=== PATIENT | male | born 2000 | race Caucasian/White ===

== ENCOUNTER 2022-11-18 19:20 | Inpatient (IN) ==
[2022-11-18 19:40] VITALS: BMI 27.8
--- NOTE | 2022-11-18 19:43 | DR.GENAD ---
HPI Time Seen Time Seen by Provider: 11/18/22 19:42 PCP Primary Care Physician: Nurys Morales Complaint/Symptoms Chief Complaint:: patient ambulatory in the ER with complaints of flu like symptoms since 11/07. pt was tested for flu and covid at doctors office with negative results. Pt was given a Zpack with no relief of symptoms. pt went to Nurys Bolivar NP for blood work today with an elevated liver enzymes and was told to come to the ER. Lab values AST 562, ALT 1189, AlK PHOS 410. Self Treatment fo Chief Complaint: Tylenol, Z pack COVID-19 Has patient experienced Coronavirus symptoms: Yes Coronavirus symptoms experienced: Fever Source History Provided: Patient Mode of Arrival Mode of Arrival: Ambulatory Timing Onset of Chief Complaint: 11/07/22 PMH PMH Past Medical History: No Past Surgical History: Yes Past Surgical History Comment: Mouth Surgery Family History History of Family Medical Conditions: No Family Medical History: Hypertension Social History Type of Tobacco Use: None Alcohol Use: None Do you use any recreational Drugs:: No Lives With: Spouse Lives Where: Home Travel Risk Has patient experienced Coronavirus symptoms: Yes Coronavirus symptoms experienced: Fever Infectious screening Have you traveled outside the country in the last 6 months?: No Isolation: Standard PE Vital Signs Vitals: Temperature 97.3 F Pulse Rate 97 Respiratory Rate 19 Blood Pressure 136/73 O2 Sat by Pulse Oximetry 99 ROR Labs Reviewed Result Diagrams: 11/22/22 06:14 11/22/22 06:14 Laboratory: WBC 24.5 X10^3/uL (3.6-10.0) H 11/18/22 20:03 RBC 4.28 X10^6/uL (4.7-6.0) L 11/18/22 20:03 Hgb 13.4 g/dL (13.5-18.0) L 11/18/22 20:03 Hct 40.1 % (42.0-54.0) L 11/18/22 20:03 MCV 93.8 fL (80.0-100.0) 11/18/22 20:03 MCH 31.3 pg (27.0-34.0) 11/18/22 20:03 MCHC 33.4 g/dL (33.0-35.0) 11/18/22 20:03 RDW 13.6 % (11.6-16.5) 11/18/22 20:03 Plt Count 265 X10^3/uL (150.0-450.0) 11/18/22 20:03 Plt Count Comment Cancelled 11/18/22 20:03 MPV 7.7 fL (7.4-11.0) 11/18/22 20:03 Neut % (Auto) 17.0 % (42.0-75.0) L 11/18/22 20:03 Lymph % (Auto) 70.5 % (21.0-51.0) H 11/18/22 20:03 Webb % (Auto) 10.4 % (0.0-13.0) 11/18/22 20:03 Eos % (Auto) 2.1 % (0.9-2.9) 11/18/22 20:03 Baso % (Auto) 0 % (0.2-1.0) L 11/18/22 20:03 Neut # (Auto) 4.2 x10^3/uL (2.2-4.8) 11/18/22 20:03 Lymph # (Auto) 17.3 X10^3/uL (1.3-2.9) H 11/18/22 20:03 Webb # (Auto) 2.5 x10^3/uL (0.3-0.8) H 11/18/22 20:03 Eos # (Auto) 0.5 x10^3/uL (0.0-0.2) H 11/18/22 20:03 Baso # (Auto) 0.0 X10^3/uL (0.0-0.1) 11/18/22 20:03 Absolute Nucleated RBC 0.2 /100WBC 11/18/22 20:03 Total Counted Cancelled 11/18/22 20:03 Neutrophils % (Manual) Cancelled 11/18/22 20:03 Band Neutrophils % Cancelled 11/18/22 20:03 Lymphocytes % (Manual) Cancelled 11/18/22 20:03 Monocytes % (Manual) Cancelled 11/18/22 20:03 Eosinophils % (Manual) Cancelled 11/18/22 20:03 Basophils % (Manual) Cancelled 11/18/22 20:03 Metamyelocytes % Cancelled 11/18/22 20:03 Myelocytes % Cancelled 11/18/22 20:03 Promyelocytes % Cancelled 11/18/22 20:03 Nucleated RBCs Cancelled 11/18/22 20:03 Atypical Lymphocytes Cancelled 11/18/22 20:03 Blast Cells Cancelled 11/18/22 20:03 Smudge Cells Cancelled 11/18/22 20:03 Toxic Granulation Cancelled 11/18/22 20:03 Dohle Bodies Cancelled 11/18/22 20:03 Danae Rods Cancelled 11/18/22 20:03 Plt Clumps, EDTA Cancelled 11/18/22 20:03 Giant Platelets Cancelled 11/18/22 20:03 Plt Morphology Comment Cancelled 11/18/22 20:03 RBC Morphology Cancelled 11/18/22 20:03 Dimorphic RBCs Cancelled 11/18/22 20:03 Polychromasia Cancelled 11/18/22 20:03 Hypochromasia Cancelled 11/18/22 20:03 Poikilocytosis Cancelled 11/18/22 20:03 Basophilic Stippling Cancelled 11/18/22 20:03 Anisocytosis Cancelled 11/18/22 20:03 Microcytosis Cancelled 11/18/22 20:03 Macrocytosis Cancelled 11/18/22 20:03 Spherocytes Cancelled 11/18/22 20:03 Pappenheimer Bodies Cancelled 11/18/22 20:03 Sickle Cells Cancelled 11/18/22 20:03 Target Cells Cancelled 11/18/22 20:03 Tear Drop Cells Cancelled 11/18/22 20:03 Ovalocytes Cancelled 11/18/22 20:03 Stomatocytes Cancelled 11/18/22 20:03 Helmet Cells Cancelled 11/18/22 20:03 Peguero-Leona Bodies Cancelled 11/18/22 20:03 [place] Rings Cancelled 11/18/22 20:03 [place] Cells Cancelled 11/18/22 20:03 Crenated Cell Cancelled 11/18/22 20:03 Acanthocytes (Spur) Cancelled 11/18/22 20:03 Rouleaux Cancelled 11/18/22 20:03 Schistocytes Cancelled 11/18/22 20:03 Smear Path Review See note 11/18/22 20:03 PT 13.8 SECONDS (11.8-14.3) 11/18/22 22:00 INR Target Range - 11/18/22 22:00 INR 1.09 (0.8-1.3) 11/18/22 22:00 APTT 30.6 SECONDS (22.9-36.5) 11/18/22 22:00 PTT Comment - 11/18/22 22:00 Sodium 137 mmol/L (136-145) 11/18/22 20:03 Corrected Sodium TNP 11/18/22 20:03 Potassium 4.3 mmol/L (3.5-5.1) 11/18/22 20:03 Chloride 101 mmol/L (98-107) 11/18/22 20:03 Carbon Dioxide 30.2 mmol/L (21-32) 11/18/22 20:03 BUN 10 mg/dL (7-18) 11/18/22 20:03 Creatinine 0.76 mg/dL (0.70-1.30) 11/18/22 20:03 Est GFR (MDRD) Af Amer > 60 (>60) 11/18/22 20:03 Est GFR (MDRD) Non-Af > 60 (>60) 11/18/22 20:03 Glucose 84 mg/dL (65-99) 11/18/22 20:03 Calcium 8.6 mg/dL (8.5-10.1) 11/18/22 20:03 Corrected Calcium TNP 11/18/22 20:03 Total Bilirubin 1.50 mg/dL (0.2-1.0) H 11/18/22 20:03 AST 516 Units/L (15-37) H 11/18/22 20:03 ALT 1325 Units/L (12-78) H 11/18/22 20:03 Alkaline Phosphatase 381 Units/L (46-116) H 11/18/22 20:03 Total Protein 7.7 g/dL (6.4-8.2) 11/18/22 20:03 Albumin 3.8 g/dL (3.4-5.0) 11/18/22 20:03 Globulin 3.9 g/dL (2.5-4.5) 11/18/22 20:03 Albumin/Globulin Ratio 1.0 Ratio (1.1-2.1) L 11/18/22 20:03 Amylase 72 Units/L (25-115) 11/18/22 20:03 Lipase 99 Units/L (73-393) 11/18/22 20:03 Specimen Type Clean catch urine 11/18/22 21:07 Urine Color Yellow (YELLOW) 11/18/22 21:07 Urine Appearance Clear (CLEAR) 11/18/22 21:07 Urine pH 6.5 (5.0 - 8.0) 11/18/22 21:07 Ur Specific [place] 1.005 (1.000-1.030) 11/18/22 21:07 Urine Protein 2+ (NEGATIVE) 11/18/22 21:07 Urine Glucose (UA) Negative (NEGATIVE) 11/18/22 21:07 Urine Ketones Negative (NEGATIVE) 11/18/22 21:07 Urine Blood 1+ (NEGATIVE) 11/18/22 21:07 Urine Nitrite Negative (NEGATIVE) 11/18/22 21:07 Urine Bilirubin Negative (NEGATIVE) 11/18/22 21:07 Urine Urobilinogen Normal (NORMAL) 11/18/22 21:07 Ur Leukocyte Esterase Negative (NEGATIVE) 11/18/22 21:07 Urine RBC None seen /HPF (0-3) 11/18/22 21:07 Urine WBC 0-2 /HPF (0-5) 11/18/22 21:07 Ur Squamous Epith Cells Rare /HPF (NEGATIVE) 11/18/22 21:07 Urine Bacteria Negative /HPF (NEGATIVE) 11/18/22 21:07 Ur Culture Indicated? No/not indicated 11/18/22 21:07 Acetaminophen 0.0 ug/mL (10-30) L 11/18/22 20:03 SARS-CoV-2 (PCR) Negative (NEGATIVE) 11/18/22 21:54 Hepatitis A IgM Ab Negative (Negative) 11/18/22 22:00 Hep Bs Antigen Negative (Negative) 11/18/22 22:00 Hep B Core IgM Ab Positive (Negative) H 11/18/22 22:00 Hepatitis C Ab Index 0.05 IV 11/18/22 22:00 Hep C RIBA Interpret Negative (Negative) 11/18/22 22:00 Hepatitis Interpret See note 11/18/22 22:00 Monoscreen Positive (NEGATIVE) A 11/18/22 22:00 Influenza Type A (PCR) Negative (NEGATIVE) 11/18/22 21:54 Influenza Type B (PCR) Negative (NEGATIVE) 11/18/22 21:54 RSV (PCR) Negative (NEGATIVE) 11/18/22 21:54 Opioid Opioid Risk Tool Age (Chung box if 16-45): Yes Total: 1 Total Score Risk Category: Low Risk Copyright: Orville COLBERT predicting aberrant behaviors Discharge Plan Discharge Plan Patient Disposition: HOME, SELF-CARE Condition: Stable Discharge Comment: Admited to ICU RM#2
[2022-11-18 20:15] LABS: BASOPHILS % (AUTO) 0 % (0.2-1.0); EOSINOPHILS # (AUTO) 0.5 x10^3/uL (0.0-0.2); EOSINOPHILS % (AUTO) 2.1 % (0.9-2.9); HEMATOCRIT 40.1 % (42.0-54.0); HEMOGLOBIN 13.4 g/dL (13.5-18.0); LYMPHOCYTES # (AUTO) 17.3 X10^3/uL (1.3-2.9); LYMPHOCYTES % (AUTO) 70.5 % (21.0-51.0); MEAN CORPUSCULAR HEMOGLOBIN 31.3 pg (27.0-34.0); MEAN CORPUSCULAR HGB CONC 33.4 g/dL (33.0-35.0); MEAN CORPUSCULAR VOLUME 93.8 fL (80.0-100.0); MEAN PLATELET VOLUME 7.7 fL (7.4-11.0); MONOCYTES # (AUTO) 2.5 x10^3/uL (0.3-0.8); MONOCYTES % (AUTO) 10.4 % (0.0-13.0); NEUTROPHILS # (AUTO) 4.2 x10^3/uL (2.2-4.8); RED BLOOD COUNT 4.28 X10^6/uL (4.7-6.0); RED CELL DISTRIBUTION WIDTH 13.6 % (11.6-16.5); WHITE BLOOD COUNT 24.5 X10^3/uL (3.6-10.0)
[2022-11-18 20:32] LABS: ALBUMIN 3.8 g/dL (3.4-5.0); ALKALINE PHOSPHATASE 381 Units/L (46-116); AMYLASE 72 Units/L (25-115); ASPARTATE AMINO TRANSFERASE 516 Units/L (15-37); BLOOD UREA NITROGEN 10 mg/dL (7-18); CALCIUM 8.6 mg/dL (8.5-10.1); CARBON DIOXIDE 30.2 mmol/L (21-32); CHLORIDE 101 mmol/L (98-107); CREATININE 0.76 mg/dL (0.70-1.30); LIPASE 99 Units/L (73-393); SODIUM 137 mmol/L (136-145); TOTAL PROTEIN 7.7 g/dL (6.4-8.2); eGFR NON BLACK RACES > 60 (>60)
--- NOTE | 2022-11-18 20:34 | CT ---
ABDOMEN/PELVIS WITH CONHISTORY: Flu-like symptomsComparison:NoneTechnique:Multiple axial images of the abdomen and pelvis were obtained from the lung bases to the pubic symphysis following the administration of IV contrast as well as oral contrast . Dose reduction techniques including Automated Exposure Control (AEC) and adjustment of mA and kV were utlized.Findings:The heart is normal in size. There is no pericardial effusion. Lung bases are clear without focal consolidation, pleural effusion or pneumothorax.Liver is within normal limits. Spleen measures 15 cm. No focal lesions. The portal vein is patent. No ductal dilitation. Gallbladder is present. No calcified gallstones or gallbladder wall thickening. The pancreas is unremarkable. Adrenal glands are normal. Kidneys enhance symmetrically without hydronephrosis or nephrolithiasis.No bowel obstruction or inflammation. Normal appendix. No abnormal appearing mesenteric or retroperitoneal lymph nodes. . No free fluid or fluid collections.The bladder is normal in appearance. Prostate unremarkable. No free fluid or abnormal pelvic lymph nodes.No aggressive osseous lesions.IMPRESSION:1.Mild splenomegaly. Otherwise grossly unremarkable.Electronically signed by: TANISHA FAJARDO (Nov 18, 2022 20:33:05)
[2022-11-18 21:06] LABS: ALANINE AMINOTRANSFERASE 1325 Units/L (12-78)
[2022-11-18 21:17] LABS: BILIRUBIN,URINE NEGATIVE (NEGATIVE); BLOOD/HEMOGLOBIN,URINE 1+ (NEGATIVE); GLUCOSE, URINE NEGATIVE (NEGATIVE); KETONES,URINE NEGATIVE (NEGATIVE); LEUKOCYTE ESTERASE ,URINE NEGATIVE (NEGATIVE); NITRITES,URINE NEGATIVE (NEGATIVE); PH,URINE 6.5 (5.0 - 8.0); PROTEIN,URINE 2+ (NEGATIVE); UROBILINOGEN,URINE NORMAL (NORMAL)
[2022-11-18 21:32] LABS: APPEARANCE,URINE CLEAR (CLEAR); BACTERIA,URINE NEGATIVE /HPF (NEGATIVE); COLOR,URINE YELLOW (YELLOW); RBC,URINE NONE SEEN /HPF (0-3); SQUAMOUS EPITHELIAL CELL,UR RARE /HPF (NEGATIVE)
[2022-11-18] MEDS: NS 100 ML IV 100 ML ONE ×2 (21:47→21:49)
[2022-11-18 22:18] LABS: INR 1.09 (0.8-1.3)
[2022-11-18] MEDS ORDERED: ZOFRAN INJ 4 MG VIAL IVP PRN (23:40)
[2022-11-18] MEDS ORDERED: TYLENOL 325 MG TAB PO PRN (23:52)
[2022-11-19] MEDS: NS 1,000 ML IV 1,000 ML IV SCH ×3 (00:47→21:44)
[2022-11-19 05:26] LABS: BASOPHILS # (AUTO) 0.1 X10^3/uL (0.0-0.1); BASOPHILS % (AUTO) 0.5 % (0.2-1.0); EOSINOPHILS % (AUTO) 0.2 % (0.9-2.9); HEMATOCRIT 37.4 % (42.0-54.0); HEMOGLOBIN 12.6 g/dL (13.5-18.0); LYMPHOCYTES # (AUTO) 20.6 X10^3/uL (1.3-2.9); LYMPHOCYTES % (AUTO) 92.5 % (21.0-51.0); MEAN CORPUSCULAR HEMOGLOBIN 31.3 pg (27.0-34.0); MEAN CORPUSCULAR HGB CONC 33.7 g/dL (33.0-35.0); MEAN CORPUSCULAR VOLUME 92.8 fL (80.0-100.0); MEAN PLATELET VOLUME 8.4 fL (7.4-11.0); MONOCYTES # (AUTO) 0.2 x10^3/uL (0.3-0.8); MONOCYTES % (AUTO) 0.8 % (0.0-13.0); NEUTROPHILS # (AUTO) 1.3 x10^3/uL (2.2-4.8); RED BLOOD COUNT 4.03 X10^6/uL (4.7-6.0); RED CELL DISTRIBUTION WIDTH 13.5 % (11.6-16.5); WHITE BLOOD COUNT 22.3 X10^3/uL (3.6-10.0)
[2022-11-19 05:49] LABS: ALBUMIN 3.3 g/dL (3.4-5.0); ALKALINE PHOSPHATASE 353 Units/L (46-116); AMYLASE 65 Units/L (25-115); ASPARTATE AMINO TRANSFERASE 431 Units/L (15-37); BLOOD UREA NITROGEN 6 mg/dL (7-18); CARBON DIOXIDE 28.8 mmol/L (21-32); CHLORIDE 104 mmol/L (98-107); COR CA(FOR HYPOALB) 8.6 mg/dL (8.5-10.1); CREATININE 0.73 mg/dL (0.70-1.30); LIPASE 107 Units/L (73-393); SODIUM 140 mmol/L (136-145); TOTAL PROTEIN 6.8 g/dL (6.4-8.2); eGFR NON BLACK RACES > 60 (>60)
[2022-11-19 05:50] LABS: ALANINE AMINOTRANSFERASE 1179 Units/L (12-78)
[2022-11-19] MEDS ORDERED: POTASSIUM CHL 60 MEQ/NS 0.45% 500 ML IV PRN (06:43)
[2022-11-19] MEDS ORDERED: K-RIDER 10 MEQ/NS 100 ML 10 MEQ/100 ML BAG IV PRN (06:43)
[2022-11-19] MEDS ORDERED: MICRO K EXTEN CAP 10 MEQ PO PRN (06:43)
[2022-11-19] MEDS ORDERED: KLOR-CON PO PRN (06:43)
[2022-11-19] MEDS ORDERED: POTASSIUM CHL 40 MEQ/NS 0.45% 500 ML IV PRN (06:43)
[2022-11-19] MEDS ORDERED: POTASSIUM CHLORIDE LIQ 20 MEQ UDC PO PRN (06:43)
[2022-11-19] MEDS ORDERED: K-DUR TAB 20 MEQ PO PRN (06:43)
[2022-11-19] MEDS: MAGNESIUM SULFATE 1 GRAM/100 mL PREMIX 1 G/100 ML BAG IV PRN ×2 (11:11→13:01)
--- NOTE | 2022-11-19 11:14 | CT ---
HISTORYintractable haSTUDYCT brain without IV contrastCOMPARISONNoneTECHNIQUEMultiple axial images of the brain were obtained without IV contrast. Dose reduction techniques including Automated Exposure Control (AEC) and adjustment of mA and kV were utilized.FINDINGSSmall retention cyst is seen in the right maxillary sinus. No air-fluid levels are seen in the paranasal sinuses or mastoid air cells. No calvarial fracture is seen.No acute intracranial hemorrhage or mass effect is seen. The cerebral ventricles are normal in size. No evidence of acute CVA.IMPRESSIONNo intra abnormalities are seen.Small retention cyst is seen in the right maxillary sinus.Electronically signed by: Girish Mullen (Nov 19, 2022 10:35:27)
--- NOTE | 2022-11-19 17:52 | DR.H&P ---
H&P - History & Physical for Day of: H&P Date: 11/18/22 - Chief Complaint Chief Complaint: "flu like symptoms" abnormal blood work and was instructed to report to ER - History of Present Illness History of Present Illness: Patient ambulatory in the ER with complaints of flu like symptoms since 11/07. pt was tested for flu and covid at doctors office with negative results. Pt was given a Zpack with no relief of symptoms. pt went to Nurys Bolivar NP for blood work today with an elevated liver enzymes and was told to come to the ER. Lab values AST 562, ALT 1189, AlK PHOS 410. Self Treatment fo Chief Complaint: Tylenol, Z pack - Past Medical History Past Medical History: Anxiety, Arthritis - Past Surgical History Surgical History: No History - Family History Family Medical History: Hypertension - Social History Does patient currently use any type of tobacco product: No Have you used tobacco products in the last 12 months: No Type of Tobacco Use: None Does any household member use tobacco: No Alcohol Use: None Drug Use: None Risks, benefits, and alternatives of opioids discussed: No - Medications Home Medications: No Known Allergies Allergy (Verified 11/18/22 21:19) CONTINUE taking the following medications NK 11/19/22 [History] - Review of Systems Constitutional: Malaise Eyes: No Symptoms Reported ENT: No Symptoms Reported Respiratory: Cough, Pleuritic Pain Cardiovascular: No Symptoms Reported Gastrointestinal: Nausea Musculoskeletal: Neck Pain Skin: No Symptoms Reported Neurological: Other (headache) - Physical Exam Vital Signs: Temperature 98.8 F Pulse Rate [Apical] 93 Pulse Rate [Brachial] 73 Pulse Rate 97 Respiratory Rate 25 Blood Pressure [Right Arm] 135/63 Blood Pressure 136/73 O2 Sat by Pulse Oximetry 99 Oriented: Normal Eyes: Normal Ear: Normal Nose: Discharge Throat: Tonsillar Hypertrophy, Exudate Respiratory: Clear Throughout : Normal Auscultation: Bowel Sounds: Normal Palpation: Normal Tenderness: LUQ, Mild Skin: Decreased Turgur Musculoskeletal: Normal Mood Description: Calm Affect: Normal Speech Pattern: Clear, Appropriate - Assessment/Plan (1) Mononucleosis syndrome Status: Acute Plan: ADMIT, CT OF ABD/PELVIS OBTAINED IN ER. HEPATIC PROTCOL. IV HYDRATION, PAIN CONTROL, RESP PANEL OBTAINED ON ADMISSION (2) Abnormal liver enzymes Status: Acute (3) Intractable headache Status: Acute - Allergies Allergies/Adverse Reactions: Allergies Allergy/AdvReac Type Severity Reaction Status Date / Time No Known Allergies Allergy Verified 11/18/22 21:19
[2022-11-20] MEDS: NS 1,000 ML IV 1,000 ML IV SCH ×4 (02:25→18:11)
[2022-11-20 06:07] LABS: BASOPHILS # (AUTO) 0.1 X10^3/uL (0.0-0.1); BASOPHILS % (AUTO) 0.5 % (0.2-1.0); EOSINOPHILS # (AUTO) 0.1 x10^3/uL (0.0-0.2); EOSINOPHILS % (AUTO) 0.3 % (0.9-2.9); HEMATOCRIT 38.9 % (42.0-54.0); LYMPHOCYTES # (AUTO) 21.3 X10^3/uL (1.3-2.9); MEAN CORPUSCULAR HEMOGLOBIN 31.5 pg (27.0-34.0); MEAN CORPUSCULAR HGB CONC 33.3 g/dL (33.0-35.0); MEAN CORPUSCULAR VOLUME 94.6 fL (80.0-100.0); MEAN PLATELET VOLUME 8.6 fL (7.4-11.0); MONOCYTES % (AUTO) 4.3 % (0.0-13.0); NEUTROPHILS # (AUTO) 1.4 x10^3/uL (2.2-4.8); NEUTROPHILS % (AUTO) 5.9 % (42.0-75.0); RED BLOOD COUNT 4.11 X10^6/uL (4.7-6.0); RED CELL DISTRIBUTION WIDTH 13.8 % (11.6-16.5); WHITE BLOOD COUNT 23.9 X10^3/uL (3.6-10.0)
[2022-11-20 06:20] LABS: ALBUMIN 3.3 g/dL (3.4-5.0); ALKALINE PHOSPHATASE 355 Units/L (46-116); ASPARTATE AMINO TRANSFERASE 354 Units/L (15-37); BLOOD UREA NITROGEN 5 mg/dL (7-18); CALCIUM 8.3 mg/dL (8.5-10.1); CARBON DIOXIDE 27.6 mmol/L (21-32); CHLORIDE 102 mmol/L (98-107); COR CA(FOR HYPOALB) 8.9 mg/dL (8.5-10.1); CREATININE 0.77 mg/dL (0.70-1.30); MAGNESIUM 1.6 mg/dL (2.0-2.9); SODIUM 138 mmol/L (136-145); TOTAL PROTEIN 6.9 g/dL (6.4-8.2); eGFR NON BLACK RACES > 60 (>60)
[2022-11-20 06:35] LABS: ALANINE AMINOTRANSFERASE 1055 Units/L (12-78)
[2022-11-20] MEDS: MAGNESIUM SULFATE 1 GRAM/100 mL PREMIX 1 G/100 ML BAG IV PRN ×2 (08:46→10:52)
[2022-11-20] MEDS: ROCEPHIN VIAL 1 GRAM 1 G in NS 100 ML IV 100 ML IV SCH ×2 (09:41)
--- NOTE | 2022-11-20 11:12 | RAD ---
HISTORYCOUGH, FEVERSTUDYCHEST, 1 VIEWCOMPARISONNoneTECHNIQUEPA or AP view of the chest two images.FINDINGSThe cardiac and mediastinal contours are within normal limits. The lungs are clear without focal consolidation or segmental collapse. No pleural effusion or pneumothorax.IMPRESSIONNo acute pulmonary process.Electronically signed by: Giuliano Verdugo (Nov 20, 2022 11:11:20)
--- NOTE | 2022-11-20 18:42 | PCM.PROG ---
Progress Note - Progress Note for Day of Date of Exam: 11/20/22 - Subjective Subjective: PT IS 22WM WITH ACUTE MONO WITH HEPATIC IMPAIRMENT AND SPLENOMEGALY. PT CONTINUE WITH GENTLE IV HYDRATION THIS AM AND SLIGHT IMPROVING LFTS, BUT REMAIN DRAMATICALLY ELEVATED. PT DENIES ANY N/V THIS AM. PT HAD CT HEAD WO ACUTE ABNORMAL FINDINGS. PT HAS HAD LOW GRADE TEMP AND COUGH, HIS WBC REMAIN ELEVATED THIS AM. PT IS BEING TREATED WITH ROCEPHIN IV AND WE WILL OBTAIN A CXR. PT DENIES ANY CHEST PAIN OR SOB. - Past Medical Family Social History Past Med/Fam/Surg Hx: No changes since H&P Allergies: Allergies No Known Allergies Allergy (Verified 11/18/22 21:19) - Review of Systems ROS: No change since H&P - Vital Signs and I&O's Vital Signs: Temperature 98.1 F Pulse Rate [Apical] 101 Pulse Rate [Brachial] 88 Pulse Rate 97 Respiratory Rate 18 Blood Pressure [Right Arm] 134/70 Blood Pressure 136/73 O2 Sat by Pulse Oximetry 98 Intake and Output: Intake & Output 11/18/22 11/19/22 11/20/22 11/21/22 11:59 11:59 11:59 11:59 Intake Total 1025 / 1025 4158 / 4158 1645 / 1645 Balance 1025 / 1025 4158 / 4158 1645 / 1645 - Physical Exam Oriented: Normal Eyes: Normal Ear: Normal Nose: Discharge Throat: Tonsillar Hypertrophy, Exudate : Normal Auscultation: Bowel Sounds: Normal Tenderness: LUQ, Mild Skin: Decreased Turgur Musculoskeletal: Normal Mood Description: Calm Affect: Normal Speech Pattern: Clear, Appropriate - Laboratory and Diagnostics Result Diagrams: 11/20/22 05:07 11/20/22 05:07 Labs: Laboratory WBC 23.9 X10^3/uL (3.6-10.0) H 11/20/22 05:07 RBC 4.11 X10^6/uL (4.7-6.0) L 11/20/22 05:07 Hgb 13.0 g/dL (13.5-18.0) L 11/20/22 05:07 Hct 38.9 % (42.0-54.0) L 11/20/22 05:07 MCV 94.6 fL (80.0-100.0) 11/20/22 05:07 MCH 31.5 pg (27.0-34.0) 11/20/22 05:07 MCHC 33.3 g/dL (33.0-35.0) 11/20/22 05:07 RDW 13.8 % (11.6-16.5) 11/20/22 05:07 Plt Count 233 X10^3/uL (150.0-450.0) 11/20/22 05:07 Plt Count Comment Cancelled 11/18/22 20:03 MPV 8.6 fL (7.4-11.0) 11/20/22 05:07 Neut % (Auto) 5.9 % (42.0-75.0) L 11/20/22 05:07 Lymph % (Auto) 89.0 % (21.0-51.0) H 11/20/22 05:07 [place] % (Auto) 4.3 % (0.0-13.0) 11/20/22 05:07 Eos % (Auto) 0.3 % (0.9-2.9) L 11/20/22 05:07 Baso % (Auto) 0.5 % (0.2-1.0) 11/20/22 05:07 Neut # (Auto) 1.4 x10^3/uL (2.2-4.8) L 11/20/22 05:07 Lymph # (Auto) 21.3 X10^3/uL (1.3-2.9) H 11/20/22 05:07 [place] # (Auto) 1.0 x10^3/uL (0.3-0.8) H 11/20/22 05:07 Eos # (Auto) 0.1 x10^3/uL (0.0-0.2) 11/20/22 05:07 Baso # (Auto) 0.1 X10^3/uL (0.0-0.1) 11/20/22 05:07 Absolute Nucleated RBC 0.1 /100WBC 11/20/22 05:07 Total Counted Cancelled 11/18/22 20:03 Neutrophils % (Manual) Cancelled 11/18/22 20:03 Band Neutrophils % Cancelled 11/18/22 20:03 Lymphocytes % (Manual) Cancelled 11/18/22 20:03 Monocytes % (Manual) Cancelled 11/18/22 20:03 Eosinophils % (Manual) Cancelled 11/18/22 20:03 Basophils % (Manual) Cancelled 11/18/22 20:03 Metamyelocytes % Cancelled 11/18/22 20:03 Myelocytes % Cancelled 11/18/22 20:03 Promyelocytes % Cancelled 11/18/22 20:03 Nucleated RBCs Cancelled 11/18/22 20:03 Atypical Lymphocytes Cancelled 11/18/22 20:03 Blast Cells Cancelled 11/18/22 20:03 Smudge Cells Cancelled 11/18/22 20:03 Toxic Granulation Cancelled 11/18/22 20:03 Dohle Bodies Cancelled 11/18/22 20:03 Danae Rods Cancelled 11/18/22 20:03 Plt Clumps, EDTA Cancelled 11/18/22 20:03 Giant Platelets Cancelled 11/18/22 20:03 Plt Morphology Comment Cancelled 11/18/22 20:03 RBC Morphology Cancelled 11/18/22 20:03 Dimorphic RBCs Cancelled 11/18/22 20:03 Polychromasia Cancelled 11/18/22 20:03 Hypochromasia Cancelled 11/18/22 20:03 Poikilocytosis Cancelled 11/18/22 20:03 Basophilic Stippling Cancelled 11/18/22 20:03 Anisocytosis Cancelled 11/18/22 20:03 Microcytosis Cancelled 11/18/22 20:03 Macrocytosis Cancelled 11/18/22 20:03 Spherocytes Cancelled 11/18/22 20:03 Pappenheimer Bodies Cancelled 11/18/22 20:03 Sickle Cells Cancelled 11/18/22 20:03 Target Cells Cancelled 11/18/22 20:03 Tear Drop Cells Cancelled 11/18/22 20:03 Ovalocytes Cancelled 11/18/22 20:03 Stomatocytes Cancelled 11/18/22 20:03 Helmet Cells Cancelled 11/18/22 20:03 Peguero-[place] Bodies Cancelled 11/18/22 20:03 [place] Rings Cancelled 11/18/22 20:03 [place] Cells Cancelled 11/18/22 20:03 Crenated Cell Cancelled 11/18/22 20:03 Acanthocytes (Spur) Cancelled 11/18/22 20:03 Rouleaux Cancelled 11/18/22 20:03 Schistocytes Cancelled 11/18/22 20:03 PT 13.8 SECONDS (11.8-14.3) 11/18/22 22:00 INR Target Range - 11/18/22 22:00 INR 1.09 (0.8-1.3) 11/18/22 22:00 APTT 30.6 SECONDS (22.9-36.5) 11/18/22 22:00 PTT Comment - 11/18/22 22:00 Sodium 138 mmol/L (136-145) 11/20/22 05:07 Corrected Sodium TNP 11/20/22 05:07 Potassium 4.0 mmol/L (3.5-5.1) 11/20/22 05:07 Chloride 102 mmol/L (98-107) 11/20/22 05:07 Carbon Dioxide 27.6 mmol/L (21-32) 11/20/22 05:07 BUN 5 mg/dL (7-18) L 11/20/22 05:07 Creatinine 0.77 mg/dL (0.70-1.30) 11/20/22 05:07 Est GFR (MDRD) Af Amer > 60 (>60) 11/20/22 05:07 Est GFR (MDRD) Non-Af > 60 (>60) 11/20/22 05:07 Glucose 95 mg/dL (65-99) 11/20/22 05:07 Calcium 8.3 mg/dL (8.5-10.1) L 11/20/22 05:07 Corrected Calcium 8.9 mg/dL (8.5-10.1) 11/20/22 05:07 Magnesium 1.6 mg/dL (2.0-2.9) L 11/20/22 05:07 Total Bilirubin 1.20 mg/dL (0.2-1.0) H 11/20/22 05:07 AST 354 Units/L (15-37) H 11/20/22 05:07 ALT 1055 Units/L (12-78) H 11/20/22 05:07 Alkaline Phosphatase 355 Units/L (46-116) H 11/20/22 05:07 Total Protein 6.9 g/dL (6.4-8.2) 11/20/22 05:07 Albumin 3.3 g/dL (3.4-5.0) L 11/20/22 05:07 Globulin 3.6 g/dL (2.5-4.5) 11/20/22 05:07 Albumin/Globulin Ratio 0.9 Ratio (1.1-2.1) L 11/20/22 05:07 Amylase 65 Units/L (25-115) 11/19/22 04:36 Lipase 107 Units/L (73-393) 11/19/22 04:36 Specimen Type Clean catch urine 11/18/22 21:07 Urine Color Yellow (YELLOW) 11/18/22 21:07 Urine Appearance Clear (CLEAR) 11/18/22 21:07 Urine pH 6.5 (5.0 - 8.0) 11/18/22 21:07 Ur Specific [place] 1.005 (1.000-1.030) 11/18/22 21:07 Urine Protein 2+ (NEGATIVE) 11/18/22 21:07 Urine Glucose (UA) Negative (NEGATIVE) 11/18/22 21:07 Urine Ketones Negative (NEGATIVE) 11/18/22 21:07 Urine Blood 1+ (NEGATIVE) 11/18/22 21:07 Urine Nitrite Negative (NEGATIVE) 11/18/22 21:07 Urine Bilirubin Negative (NEGATIVE) 11/18/22 21:07 Urine Urobilinogen Normal (NORMAL) 11/18/22 21:07 Ur Leukocyte Esterase Negative (NEGATIVE) 11/18/22 21:07 Urine RBC None seen /HPF (0-3) 11/18/22 21:07 Urine WBC 0-2 /HPF (0-5) 11/18/22 21:07 Ur Squamous Epith Cells Rare /HPF (NEGATIVE) 11/18/22 21:07 Urine Bacteria Negative /HPF (NEGATIVE) 11/18/22 21:07 Ur Culture Indicated? No/not indicated 11/18/22 21:07 Acetaminophen 0.0 ug/mL (10-30) L 11/18/22 20:03 SARS-CoV-2 (PCR) Negative (NEGATIVE) 11/18/22 21:54 Monoscreen Positive (NEGATIVE) A 11/18/22 22:00 Influenza Type A (PCR) Negative (NEGATIVE) 11/18/22 21:54 Influenza Type B (PCR) Negative (NEGATIVE) 11/18/22 21:54 RSV (PCR) Negative (NEGATIVE) 11/18/22 21:54 - Plan (1) Mononucleosis syndrome Status: Acute Plan: CT OF ABD/PELVIS OBTAINED IN ER. HEPATIC PROTCOL. IV HYDRATION, PAIN CONTROL, RESP PANEL OBTAINED ON ADMISSION. CXR, IV ROCEPHIN. PRN PAIN CONTROL, CT HEAD OBTAINED (2) Abnormal liver enzymes Status: Acute (3) Intractable headache Status: Acute
[2022-11-21] MEDS: NS 1,000 ML IV 1,000 ML IV SCH ×2 (00:52→13:20)
[2022-11-21 06:36] LABS: BASOPHILS # (AUTO) 0.1 X10^3/uL (0.0-0.1); BASOPHILS % (AUTO) 0.5 % (0.2-1.0); EOSINOPHILS % (AUTO) 0.2 % (0.9-2.9); HEMOGLOBIN 13.3 g/dL (13.5-18.0); LYMPHOCYTES # (AUTO) 21.7 X10^3/uL (1.3-2.9); LYMPHOCYTES % (AUTO) 93.8 % (21.0-51.0); MEAN CORPUSCULAR HEMOGLOBIN 31.3 pg (27.0-34.0); MEAN CORPUSCULAR HGB CONC 33.1 g/dL (33.0-35.0); MEAN CORPUSCULAR VOLUME 94.5 fL (80.0-100.0); MEAN PLATELET VOLUME 8.4 fL (7.4-11.0); MONOCYTES # (AUTO) 0 x10^3/uL (0.3-0.8); MONOCYTES % (AUTO) 0 % (0.0-13.0); NEUTROPHILS # (AUTO) 1.3 x10^3/uL (2.2-4.8); NEUTROPHILS % (AUTO) 5.5 % (42.0-75.0); RED BLOOD COUNT 4.23 X10^6/uL (4.7-6.0); RED CELL DISTRIBUTION WIDTH 13.7 % (11.6-16.5); WHITE BLOOD COUNT 23.1 X10^3/uL (3.6-10.0)
[2022-11-21 07:09] LABS: ALANINE AMINOTRANSFERASE 876 Units/L (12-78); ALBUMIN 3.2 g/dL (3.4-5.0); ALKALINE PHOSPHATASE 381 Units/L (46-116); ASPARTATE AMINO TRANSFERASE 283 Units/L (15-37); BLOOD UREA NITROGEN 5 mg/dL (7-18); CALCIUM 8.3 mg/dL (8.5-10.1); CARBON DIOXIDE 28.3 mmol/L (21-32); CHLORIDE 103 mmol/L (98-107); COR CA(FOR HYPOALB) 8.9 mg/dL (8.5-10.1); CREATININE 0.79 mg/dL (0.70-1.30); MAGNESIUM 1.6 mg/dL (2.0-2.9); SODIUM 139 mmol/L (136-145); eGFR NON BLACK RACES > 60 (>60)
[2022-11-21] MEDS: ROCEPHIN VIAL 1 GRAM 1 G in NS 100 ML IV 100 ML IV SCH (09:31)
[2022-11-21] MEDS: MAGNESIUM SULFATE 1 GRAM/100 mL PREMIX 1 G/100 ML BAG IV PRN ×2 (10:58→13:27)
[2022-11-22] MEDS: NS 1,000 ML IV 1,000 ML IV SCH ×2 (00:35→09:16)
[2022-11-22 06:48] LABS: BASOPHILS # (AUTO) 0.1 X10^3/uL (0.0-0.1); BASOPHILS % (AUTO) 0.4 % (0.2-1.0); EOSINOPHILS % (AUTO) 0.2 % (0.9-2.9); HEMOGLOBIN 13.3 g/dL (13.5-18.0); LYMPHOCYTES # (AUTO) 16.8 X10^3/uL (1.3-2.9); LYMPHOCYTES % (AUTO) 84.7 % (21.0-51.0); MEAN CORPUSCULAR HEMOGLOBIN 32.1 pg (27.0-34.0); MEAN CORPUSCULAR VOLUME 94.4 fL (80.0-100.0); MEAN PLATELET VOLUME 8.3 fL (7.4-11.0); MONOCYTES # (AUTO) 1.8 x10^3/uL (0.3-0.8); MONOCYTES % (AUTO) 8.9 % (0.0-13.0); NEUTROPHILS # (AUTO) 1.2 x10^3/uL (2.2-4.8); NEUTROPHILS % (AUTO) 5.8 % (42.0-75.0); RED BLOOD COUNT 4.13 X10^6/uL (4.7-6.0); RED CELL DISTRIBUTION WIDTH 13.9 % (11.6-16.5); WHITE BLOOD COUNT 19.9 X10^3/uL (3.6-10.0)
[2022-11-22 06:56] LABS: ALANINE AMINOTRANSFERASE 731 Units/L (12-78); ALBUMIN 3.2 g/dL (3.4-5.0); ALKALINE PHOSPHATASE 403 Units/L (46-116); ASPARTATE AMINO TRANSFERASE 218 Units/L (15-37); BLOOD UREA NITROGEN 7 mg/dL (7-18); CALCIUM 8.3 mg/dL (8.5-10.1); CARBON DIOXIDE 28.2 mmol/L (21-32); CHLORIDE 103 mmol/L (98-107); COR CA(FOR HYPOALB) 8.9 mg/dL (8.5-10.1); CREATININE 0.83 mg/dL (0.70-1.30); MAGNESIUM 1.5 mg/dL (2.0-2.9); SODIUM 139 mmol/L (136-145); TOTAL PROTEIN 7.1 g/dL (6.4-8.2); eGFR NON BLACK RACES > 60 (>60)
[2022-11-22 08:25] VITALS: BP 116/59
[2022-11-22] MEDS: ROCEPHIN VIAL 1 GRAM 1 G in NS 100 ML IV 100 ML IV SCH (09:12)
[2022-11-23 06:14] LABS: HEPATITIS B SURFACE ANTIGEN Negative (Negative)
[2022-11-23 06:16] LABS: EBV NUCLEAR AG IGG <3.0 U/mL (0.0-21.9); EPSTEIN-BARR VCA IGG 73.4 U/mL (0.0-21.9); EPSTEIN-BARR VCA IGM >160.0 U/mL (0.0-43.9)
== END 2022-11-22 11:50 | disposition home or self-care (01) | DRG 866 ==
LOC: ER 19:20 → ICU 23:05 → MED/SURG 11-19 19:22
PROVIDERS: ADMIT Internal Medicine; ATTEND Internal Medicine
DX: B27.80 Other infectious mononucleosis without complication; R51.9 Headache, unspecified; R11.0 Nausea; Z20.822 Contact with and (suspected) exposure to COVID-19; R94.5 Abnormal results of liver function studies